=== PATIENT | female | born 1980 | race Two or more races ===

== ENCOUNTER → 2017-07-24 12:59 | Outpatient (CLI) | payer OTHER, SELFPAY ==
--- NOTE | 2017-07-24 13:02 | US_ITS ---
US OB transvaginal HISTORY: ITS.REASON: DATES ORDERING PHYSICIAN: Jessica Cesar MD PATIENT AGE: 37 years COMPARISON: FINDINGS: An intrauterine gestational sac is present with a pole with a crown-rump length of 2.66cm correlating to gestational age of 9w4d. heart tones are present with an FHR of 174 bpm's. Yolk sac is noted. Adnexa: 1.7 cm right corpus luteum cyst. IMPRESSION: Live IUP at 9 weeks 4 days with an estimated due date of 02/22/2018
== END ==
PROVIDERS: Visit Provider Obstetrics & Gynecology
DX: O26.841 Uterine size-date discrepancy, first trimester (principal)
CPT/HCPCS: 76830

== ENCOUNTER → 2017-08-07 14:49 | Outpatient (CLI) | payer OTHER, SELFPAY ==
[2017-08-07 15:22] LABS: Basophils % 0.4 % (0.1-2.0); Eosinophils # 0.4 K/mm3 (0.0-0.4); Eosinophils % 5.6 % (0.1-12.0); Hematocrit 38.4 % (37.0-47.0); Hemoglobin 13.6 g/dL (12.2-16.2); Lymphocytes # 2.6 K/mm3 (0.7-4.5); Lymphocytes % 36.8 K/mm3 (10-50); Mean Corpuscular HGB Conc 35.4 g/dL (31.8-35.4); Mean Corpuscular Hemoglobin 31.6 pg (27.0-31.2); Mean Corpuscular Volume 89.1 fl (81-99); Mean Platelet Volume 7.9 fl (7.4-10.4); Monocytes # 0.3 K/mm3 (0.1-1.0); Monocytes % 3.7 % (1.7-9.3); Neutrophils # 3.8 K/mm3 (1.8-7.8); Neutrophils % 53.5 % (37.0-80.0); Platelet Count 217 K/mm3 (142-424); Red Cell Distribution Width 12.8 % (11.5-17.5); White Blood Count 7.1 K/mm3 (4.8-10.8)
[2017-08-09 08:20] LABS: HIV Screen 4th Generation wRfx Non Reactive (Non Reactive)
[2017-08-10 06:26] LABS: Hepatitis B Surface Antigen Negative (Negative); Hepatitis C Antibody <0.1 s/co ratio (0.0-0.9); Rapid Plasma Reagin Ab Titer Non Reactive (NonRea<1:1)
== END ==
PROVIDERS: Visit Provider Obstetrics & Gynecology
DX: Z34.90 Encounter for supervision of normal pregnancy, unspecified, unspecified trimester (principal)
CPT/HCPCS: 36415; 85025; 86592; 86703; 86762; 86850; 87340; 87380; G0432

== ENCOUNTER → 2017-10-07 14:59 | Outpatient (CLI) | payer OTHER, SELFPAY ==
--- NOTE | 2017-10-07 15:02 | US_ITS ---
US OB /maternal detail: INDICATION: ITS.REASON: 20 wk + US OB Complete Antatomy Scan ORDERING PHYSICIAN: Jessica Cesar MD PATIENT AGE: 37 years TECHNIQUE: ultrasound transabdominal scanning. COMPARISON: No previous relevant studies. FINDINGS: Single viable intrauterine gestation. Breech position. Placenta: Posterior placenta grade 1. There is average amount fluid. The cervix appears satisfactory. Closed and measuring 4 cm in length. Complete survey performed and was unremarkable on the submitted images as in PACS. No discrete anomalies identified on survey imaging by technologist. Active fetus. Three-vessel cord with satisfactory umbilical cord insertion. 4- chamber heart noted. Survey of brain & ventricles. Face and neck survey unremarkable. Diaphragm and chest views unremarkable. Abdomen: Both kidneys noted and unremarkable. Stomach noted and satisfactory. Spine: Survey of the spine satisfactory with no anomalies identified nor imaged. Both arms and legs noted. Amniotic Fluid: Adequate. Maternal adnexa: No significant findings. Measurements: Average ultrasound age 20w4d. Gestational Age 20w3d. Estimated due date by ultrasound age 1102/20/2018. Estimated weight 344 grams. This is 38th percentile based on established due date of 02/20/2018 BPD = 20w5d OFD = 21w3d HC = 20w3d AC = 20w3d FL = 20w2d Heart Rate = 158 Cerebellum = 20w4d Humerus = 21w2d HC/AC is 1.18 (1.09-1.26). CI is 76% (70-86%). FL/BPD is 67%. FL/AC is 22%. IMPRESSION: There is a single live fetus in breech presentation with an average ultrasound age of 20 weeks and 4 days. No obvious anomalies are apparent. heart and body motion noted. All parameters correlate. Please see above for detail
== END ==
PROVIDERS: Visit Provider Obstetrics & Gynecology
DX: Z36.0 Encounter for antenatal screening for chromosomal anomalies (principal)
CPT/HCPCS: 76811

== ENCOUNTER 2018-01-12 16:22 | Observation (INO) ==
[2018-01-12 16:44] LABS: Microscopic, Urine URINE MICROSCOPIC (MICROSCOPIC)
[2018-01-12 16:46] LABS: Appearance,Urine CLEAR (Clear); Bilirubin,Urine Negative (Negative); Blood, Urine Negative (Negative); Color,Urine YELLOW (Yellow); Glucose,Urine (UA) Negative (Negative); Ketones,Urine Negative (Negative); Leukocyte Esterase,Urine Negative (Negative); Protein,Urine Negative (Negative); Specific Gravity, Urine 1.025 (1.005-1.030); Urobilinogen,Urine 0.2 EU/dl (0.2)
[2018-01-12 16:49] VITALS: BP 120/73
[2018-01-12 17:10] LABS: Bacteria,Urine 2+ /lpf
--- NOTE | 2018-01-12 19:37 | History & Physical Report ---
OB - H&P: HPI Antepartum - History of Present Illness Chief complaint: labor, contractions History of present illness: She is a 37-year-old 7 para 6 who has had 4 vaginal deliveries and 2 previous sections. She is scheduled for a repeat section on February 16, 2018. She began having contractions this afternoon and severe lower abdominal pain. She came in to labor and delivery. We were picking up a couple of small contractions. Her cervix is 2 cm 25%, -3 and soft. She has received Brethine as well as IV fluids. Despite this she continues to have lower abdominal pain so we are going to admit her overnight. - History of Present Criteria for establishing EDC:: LMP confirmed by 1st trimester US care: good care Ultrasounds: normal 1st trimester US, normal mid trimester US Obstetrical complications: labor, previous [facility] History I have reviewed the patient's past medical history: Yes Medical History: Reports:: Diabetes Mellitus Type 1 Denies:: Anxiety, Depression, Hyperlipidemia, Hypertension, Migraine, MRSA Other Surgeries: Yes: Amputation: No Fractures: No - *Social History Smoking Status: Never smoker Alcohol Intake: never Substance Use Type: denies use - Psychiatric History Pschychiatric History:: Denies:: Anxiety, Depression *Family Hx:: No significant family history Para: 6 Review of Systems - Review of Systems Review of systems:: pertinent systems reviewed and negative unless documented below Meds Home Medications Medication Instructions Recorded Confirmed Type RX: Hulkowql82/Iron/Folic Acid/Dha 1 cap PO QHS 08/05/17 08/05/17 History [Ob Complete Petite Softgel] Allergies Allergy/AdvReac Type Severity Reaction Status Date / Time No Known Allergies Allergy Verified 12/25/17 10:05 OB - H&P: Exam - Physical Exam Vital signs: Temp Pulse Resp BP Pulse Ox 97.9 F 79 18 120/73 96 01/12/18 16:36 01/12/18 16:36 01/12/18 16:36 01/12/18 16:36 01/12/18 16:36 - Constitutional no acute distress - Routine HEENT Exam Head: Present: normocephalic Eye: Present: EOMI, PERRL ENT: Present: mucous membranes moist - Routine Neck Exam Present: supple, full ROM - Routine Respiratory Exam Absent: accessory muscle use (good air entry bilaterally), respiratory distress, wheezes, crackles - Routine Cardiovascular Exam Present: RRR. Absent: murmur - Routine Abdominal Exam Present: soft, normoactive bowel sounds. Absent: tenderness, distended, guarding - Routine Rectal Exam Patient deferred: visual exam, digital exam - Routine Exam Patient deferred: external exam, groin exam, perineal exam - Routine Extremities Exam Present: full ROM. Absent: cyanosis, edema - Routine Skin Exam Present: intact. Absent: cyanosis - Routine Neurological Exam Present: alert, oriented X3 - Routine Psychiatric Exam Present: normal affect OB - Results - Labs Labs: Urine 01/12/18 Range/Units 16:40 Urine Color Yellow (Yellow) Urine Appearance Clear (Clear) Urine pH 7.0 (5.0-8.5) Ur Specific [place] 1.025 (1.005-1.030) Urine Protein Negative (Negative) Urine Glucose (UA) Negative (Negative) OB - A/P Antepartum (1) labor in third trimester Current visit: Yes Status: Acute (2) Pelvic pain affecting Current visit: No Status: Acute (3) History of delivery Problem details: 35 weeks Current visit: No Status: Chronic (4) Language barrier affecting health care Current visit: No Status: Chronic (5) Previous section Current visit: No Status: Chronic - Additional Plan Planning to breastfeed?: Yes Plan: other Additional Information:: We will admit her for observation and magnesium sulfate. We will go ahead and give her a course of steroids. We will continue to monitor her cervix.
[2018-01-12 20:21] LABS: Basophils # 0.1 K/mm3 (0-0.2); Basophils % 0.7 % (0.1-2.0); Eosinophils # 0.3 K/mm3 (0.0-0.4); Eosinophils % 4.4 % (0.1-12.0); Hematocrit 37.2 % (37.0-47.0); Hemoglobin 12.5 g/dL (12.2-16.2); Lymphocytes # 2.2 K/mm3 (0.7-4.5); Lymphocytes % 36.5 K/mm3 (10-50); Mean Corpuscular HGB Conc 33.5 g/dL (31.8-35.4); Mean Corpuscular Hemoglobin 30.3 pg (27.0-31.2); Mean Corpuscular Volume 90.4 fl (81-99); Mean Platelet Volume 8.5 fl (7.4-10.4); Monocytes # 0.2 K/mm3 (0.1-1.0); Monocytes % 3.4 % (1.7-9.3); Neutrophils # 3.3 K/mm3 (1.8-7.8); Platelet Count 184 K/mm3 (142-424); Red Blood Count 4.12 M/mm3 (4.20-5.40); Red Cell Distribution Width 13.7 % (11.5-17.5); White Blood Count 6.1 K/mm3 (4.8-10.8)
[2018-01-12 20:31] LABS: Albumin Level 2.5 gm/dL (3.4-5.0); Albumin/Globulin Ratio 0.6 (1.1-1.8); Anion Gap 14.2 mEq/L (5-15); Bilirubin,Total 0.3 mg/dL (0.2-1.0); Calcium 8.8 mg/dL (8.5-10.1); Globulin 4.5 gm/dl (1.3-3.2); Potassium 3.2 mmoL/L (3.5-5.1)
--- NOTE | 2018-01-12 22:21 | Progress Note ---
Internal Medicine - PN: Subj *Date: 01/12/18 *Time: 22:20 Interval history: She continues to have occasional contractions. She has received a 4 g bolus of magnesium sulfate and is now on 2 g an hour. She has been on this for about an hour. She had one contraction that I could see and possibly a couple of smaller ones. She still continues to complain of upper uterine discomfort as well as lower uterine discomfort with contractions. On examination her cervix has not changed its 2 cm 25% and station -3. Exam Vital signs and Labs for Last 24 Hours: Temp Pulse Resp BP Pulse Ox 97.9 F 79 18 120/73 96 01/12/18 16:36 01/12/18 16:36 01/12/18 16:36 01/12/18 16:36 01/12/18 16:36 Laboratory Results - last 24 hr 01/12/18 16:40: Urine Color Yellow, Urine Appearance Clear, Urine pH 7.0, Ur Specific [place] 1.025, Urine Protein Negative, Urine Glucose (UA) Negative, Urine Ketones Negative, Urine Blood Negative, Urine Nitrate Negative, Urine Bilirubin Negative, Urine Urobilinogen 0.2, Ur Leukocyte Esterase Negative, Urine RBC None, Urine WBC 3-5, Ur Squamous Epith Cells 3-5, Urine Bacteria 2+ 01/12/18 20:00: WBC 6.1, RBC 4.12 L, Hgb 12.5, Hct 37.2, MCV 90.4, MCH 30.3, MCHC 33.5, RDW 13.7, Plt Count 184, MPV 8.5, Neut % (Auto) 55.0, Lymph % (Auto) 36.5, [place] % (Auto) 3.4, Eos % (Auto) 4.4, Baso % (Auto) 0.7, Neut # (Auto) 3.3, Lymph # (Auto) 2.2, [place] # (Auto) 0.2, Eos # (Auto) 0.3, Baso # (Auto) 0.1 01/12/18 20:00: Sodium 140, Potassium 3.2 L, Chloride 107, Carbon Dioxide 22, Anion Gap 14.2, BUN 10, Creatinine 0.65, Estimated Creat Clear 171, Estimated GFR 104, Est GFR ( Amer) 126, Glucose 123 H, Calcium 8.8, Total Bilirubin 0.3, AST 37, ALT 24, Alkaline Phosphatase 119 H, Total Protein 7.0, Albumin 2.5 L, Globulin 4.5 H, Albumin/Globulin Ratio 0.6 L 01/12/18 20:00: Blood Type O Positive, Antibody Screen Negative 01/12/18 20:00: Magnesium 1.7 I & O for Last 24 hours: Intake & Output 01/10/18 01/11/18 01/12/18 01/13/18 11:59 11:59 11:59 11:59 Weight 198 lb - Constitutional no acute distress Assessment and Plan (1) labor in third trimester Current visit: Yes Status: Acute Category: Medical Code(s): O60.03 - labor without delivery, third trimester (2) Pelvic pain affecting Current visit: No Status: Acute Qualifiers: Trimester: first trimester Qualified Code(s): O26.891 - Other specified related conditions, first trimester; R10.2 - Pelvic and perineal pain Category: Medical Code(s): O26.899 - Other specified related conditions, unspecified trimester; R10.2 - Pelvic and perineal pain (3) History of delivery Problem details: 35 weeks Current visit: No Status: Chronic Category: Medical (4) Language barrier affecting health care Current visit: No Status: Chronic Category: Social Hx (5) Previous section Current visit: No Status: Chronic Category: Surgical Code(s): Z98.891 - History of uterine scar from previous surgery - Assessment and plan all Dx Assessment and Plan for all problems:: She continues to complain of contractions and pain despite the fact that were not seeing much on the monitor. She has not changed her cervix. We will continue with the magnesium sulfate. We will give her something a little stronger for pain to see if this helps her sleep. She said that the Stadol actually made her pain worse. We will try 2 mg of Stadol. We will continue with observation overnight. She has received 1 dose of steroids.
--- NOTE | 2018-01-13 08:35 | Discharge Summary ---
General - General Admission date:: 01/12/18 Discharge date: 01/13/18 HPI HPI: She is a-year-old 7 para 6 who is 34 weeks gestational age. She has had 2 previous sections. She arrived last night having irregular contractions and significant pain. She denies any vaginal bleeding. She says they feel like contractions. Initially we could not pick anything up on the monitor but after readjustment it was noted that she was having contractions every 2-5 minutes. As result of that she was admitted for observation. Her cervix was 2 cm 25% and station -3. Hospital Course Hospital Course: She was admitted and given a fluid bolus. This failed to help with her contractions. She received subcutaneous Brethine and despite this continued to contract. We elected to give her 20 mg of nifedipine and she still continued sheri. Subsequently we started her on IV magnesium sulfate and she was increased from 2 g to 3 g and still continued all night to have contractions. She seems to be quite uncomfortable. On examination this morning her cervix remains 2 cm 25% and station -3. She had an ultrasound that showed a fetus in the cephalic presentation and no evidence of thinning of the lower segment. She has not had any episodes of vaginal bleeding. She has received 1 dose of Brethine. I spoke to Dr. Hameed at [facility] and we will have Mine and her family drive to . Since she has not changed her cervix I think it safe for her to go in her own vehicle. We will disconnect her IVs as well as her Claudio catheter. I spoke to her family and I told him to let her remain n.p.o. for now since she may end up with a later today. Rhogam Administration: Not Indicated Objective Vital signs: Temp Pulse Resp BP Pulse Ox 97.9 F 79 18 120/73 96 01/12/18 16:36 01/12/18 16:36 01/12/18 16:36 01/12/18 16:36 01/12/18 16:36 mild distress - *Routine Exam Comments: Her cervix remains 2 cm 25% and station -3. Results Labs on day of discharge: Labs from last 24 hours 01/13/18 01/12/18 01/12/18 05:26 20:00 20:00 WBC RBC Hgb Hct MCV MCH MCHC RDW Plt Count MPV Neut % (Auto) Lymph % (Auto) [place] % (Auto) Eos % (Auto) Baso % (Auto) Neut # (Auto) Lymph # (Auto) [place] # (Auto) Eos # (Auto) Baso # (Auto) Sodium Potassium Chloride Carbon Dioxide Anion Gap BUN Creatinine Estimated Creat Clear Estimated GFR Est GFR ( Amer) Glucose Calcium Magnesium 6.8 H D 1.7 Total Bilirubin AST ALT Alkaline Phosphatase Total Protein Albumin Globulin Albumin/Globulin Ratio Urine Color Urine Appearance Urine pH Ur Specific [place] Urine Protein Urine Glucose (UA) Urine Ketones Urine Blood Urine Nitrate Urine Bilirubin Urine Urobilinogen Ur Leukocyte Esterase Urine RBC Urine WBC Ur Squamous Epith Cells Urine Bacteria Blood Type O Positive Antibody Screen Negative 01/12/18 01/12/18 01/12/18 20:00 20:00 16:40 WBC 6.1 RBC 4.12 L Hgb 12.5 Hct 37.2 MCV 90.4 MCH 30.3 MCHC 33.5 RDW 13.7 Plt Count 184 MPV 8.5 Neut % (Auto) 55.0 Lymph % (Auto) 36.5 [place] % (Auto) 3.4 Eos % (Auto) 4.4 Baso % (Auto) 0.7 Neut # (Auto) 3.3 Lymph # (Auto) 2.2 [place] # (Auto) 0.2 Eos # (Auto) 0.3 Baso # (Auto) 0.1 Sodium 140 Potassium 3.2 L Chloride 107 Carbon Dioxide 22 Anion Gap 14.2 BUN 10 Creatinine 0.65 Estimated Creat Clear 171 Estimated GFR 104 Est GFR ( Amer) 126 Glucose 123 H Calcium 8.8 Magnesium Total Bilirubin 0.3 AST 37 ALT 24 Alkaline Phosphatase 119 H Total Protein 7.0 Albumin 2.5 L Globulin 4.5 H Albumin/Globulin Ratio 0.6 L Urine Color Yellow Urine Appearance Clear Urine pH 7.0 Ur Specific [place] 1.025 Urine Protein Negative Urine Glucose (UA) Negative Urine Ketones Negative Urine Blood Negative Urine Nitrate Negative Urine Bilirubin Negative Urine Urobilinogen 0.2 Ur Leukocyte Esterase Negative Urine RBC None Urine WBC 3-5 Ur Squamous Epith Cells 3-5 Urine Bacteria 2+ Blood Type Antibody Screen DS: Diagnosis - Discharge Diagnosis (1) labor in third trimester Status: Acute (2) Pelvic pain affecting Status: Acute (3) History of delivery Status: Chronic Problem details: 35 weeks (4) Language barrier affecting health care Status: Chronic (5) Previous section Status: Chronic Discharge Plan - Patient Discharge Instructions ACTIVITY: No heavy lifting, Bed rest DIET: NPO, other Patient Instructions: Labor, Antepartum Care - Follow up Plan Disposition: Home, Self-Snf Medications: Home Medications Medication Instructions Recorded Confirmed Type RX: Oxakbqlk85/Iron/Folic Acid/Dha 1 cap PO QHS 08/05/17 01/13/18 History [Ob Complete Petite Softgel] Prescriptions/Medication Reconciliation: Continue RX: Avupurvy77/Iron/Folic Acid/Dha [Ob Complete Petite Softgel] 1 cap PO QHS
== END 2018-01-13 09:15 | disposition short-term general hospital (02) ==
LOC: OB 16:22 → OBOUT 16:22 → OB 16:24
PROVIDERS: ADMIT Nurse Practitioner Obstetrics & Gynecology; ATTEND Obstetrics & Gynecology
CPT/HCPCS: 36415; 59025; 76819; 80053; 81001; 83735; 85025; 86850; 87086; 94761; 96360; 96372; G0378; J0595

== ENCOUNTER → 2018-01-21 18:11 | Outpatient (REF) | payer OTHER, SELFPAY | LOC: LAB 18:11 | PROVIDERS: Visit Provider Obstetrics & Gynecology | DX: Z34.90 Encounter for supervision of normal pregnancy, unspecified, unspecified trimester (principal) | CPT/HCPCS: 86403 ==

== ENCOUNTER 2018-02-06 10:47 | Outpatient (CLI) | payer OTHER, SELFPAY ==
[2018-02-06 10:54] VITALS: BMI 37.2
[2018-02-06 11:03] VITALS: BP 125/73; PULSE 71; RESP 18; TEMP 37; O2SAT 99; BMI 37.2
[2018-02-06 11:04] LABS: Microscopic, Urine URINE MICROSCOPIC (MICROSCOPIC)
[2018-02-06 11:09] LABS: Appearance,Urine CLEAR (Clear); Bilirubin,Urine Negative (Negative); Blood, Urine Negative (Negative); Color,Urine YELLOW (Yellow); Glucose,Urine (UA) Negative (Negative); Ketones,Urine Negative (Negative); Leukocyte Esterase,Urine Negative (Negative); Nitrate,Urine Negative (Negative); Protein,Urine Negative (Negative); Specific Gravity, Urine 1.015 (1.005-1.030); Urobilinogen,Urine 0.2 EU/dl (0.2)
[2018-02-06 11:50] LABS: Bacteria,Urine Trace /lpf; WBC,Urine Occasional #/hpf (0-3)
== END 2018-02-06 12:59 | disposition home or self-care (01) ==
LOC: OBOUT 10:49 → OB 10:49
PROVIDERS: Visit Provider Obstetrics & Gynecology
DX: O60.03 Preterm labor without delivery, third trimester (principal); Z3A.37 37 weeks gestation of pregnancy
CPT/HCPCS: 59025; 81001; 96360

== ENCOUNTER 2018-02-13 10:58 | Inpatient (IN) ==
[2018-02-13 12:26] LABS: Basophils % 0.7 % (0.1-2.0); Eosinophils # 0.5 K/mm3 (0.0-0.4); Eosinophils % 7.2 % (0.1-12.0); Hematocrit 38.6 % (37.0-47.0); Hemoglobin 12.9 g/dL (12.2-16.2); Lymphocytes # 2.1 K/mm3 (0.7-4.5); Mean Corpuscular HGB Conc 33.3 g/dL (31.8-35.4); Mean Corpuscular Hemoglobin 29.4 pg (27.0-31.2); Mean Platelet Volume 9.1 fl (7.4-10.4); Monocytes # 0.3 K/mm3 (0.1-1.0); Monocytes % 4.4 % (1.7-9.3); Neutrophils # 3.4 K/mm3 (1.8-7.8); Neutrophils % 53.7 % (37.0-80.0); Platelet Count 195 K/mm3 (142-424); Red Blood Count 4.38 M/mm3 (4.20-5.40); Red Cell Distribution Width 14.4 % (11.5-17.5); White Blood Count 6.3 K/mm3 (4.8-10.8)
[2018-02-13 12:38] LABS: Anion Gap 14.5 mEq/L (5-15); Potassium 4.5 mmoL/L (3.5-5.1)
--- NOTE | 2018-02-13 15:41 | Operative Note ---
Pre-Op/Post-Op Diagnoses Operation Date: 02/13/18 13:00 PRE-OP DIAGNOSIS: 1. IUP @ 38 5/7 2. Previous C Section x 2 3. Polyhydramnios 4. Obesity 5. Undesired fertility 6. Language barrier affecting health care POST-OP DIAGNOSIS: 1. IUP @ 38 5/7 2. Previous C Section x 2 3. Polyhydramnios 4. Obesity 5. Undesired fertility 6. Language barrier affecting health care 7. Dense pelvic/abdominal adhesions Procedure: Procedures Operation Date: 02/13/18 13:00 <No data on this case meets the specified criteria> 1. Repeat Low Transverse C Section 2. Bilateral tubal ligation 3. Lysis of dense pelvic/abdominal adhesions Estimated blood loss (mL): 900 Disposition: PACU Anesthesia type: Spinal Complications: none Narrative: The patient was taken to the OR and spinal administered without difficulty. She was prepped and draped in normal sterile fashion. A pfannenstiel skin incision was made with the scalpel and carried down to the fascia. The fascia was incised in the midline and sharply dissected off the rectus muscles. The muscles were densely adhesed together and not easily in the midline. The muscles were sharply dissected until the peritoneum was visible immediately beneath them (10 minutes), but the peritoneum was also densely adhesed to the rectus muscles. Sharp and blunt dissection were carried out over approximately 20 minutes until the peritoneum was able to be entered successfully and without any damage to underlying structures. The Elmer-O self retaining retractor was placed in the abdomen and the anatomy surveyed. The bladder was adhesed approximately 1/3 up the anterior uterine surface, and another 20 minutes was spent in sharp dissection of the bladder in order to identify the lower uterine segment for the necessary incision. The uterus was incised in the lower uterine segment in a transverse fashion and extended bluntly. Amniotomy was performed and copious meconium-stained amniotic fluid was noted. The 's head was delivered in controlled fashion, and double nuchal cord was reduced prior to delivery of the infant's body. The delivery occurred without complication or shoulder dystocia. The was vigorous at and handed to awaiting pediatricians for evaluation after cord clamped and cut; apgars 8 & 9 at 1 & 5 minutes. The placenta was manually extracted and noted to be intact. The uterus was repaired with 0-vicryl in a running/locked fashion, and a second layer was placed for hemostasis. Oozing over the area of bladder adhesion dissection was treated with Adrienne and Surgicel, with excellent hemostasis. The extent of adhesions within the abdomen and pelvis were such that the uterus could not be successfully exteriorized through the pfannenstiel incision in order to remove the fallopian tubes in entirety, so a traditional tubal ligation was performed by making a defect in the mesosalpinx and clamping each fallopian tube with a Alla, excising the stump of tube between the clamps and suture ligating the respective ends. Tubal segments were sent for pathology and stumps cauterized for additional hemostasis. The fascia was closed with #1 vicryl in a running fashion. The subcutaneous fat was closed with 2-0 vicryl in interrupted fashion. The skin was closed with nel. The patient tolerated the procedure well. Sponge, lap, needle and instrument counts were correct x 2. She was taken to PACU in stable condition. EBL: 900cc Total time spent in lysis of adhesions: 50 minutes
--- NOTE | 2018-02-13 15:44 | Progress Note ---
[facility] Anesthesia Checklist - Patient Identification Patient Identification: Arm Band, Verbal (Name & ) - Structural Data Admitted From: Inpatient Planned Operative Procedure/s: repeat , BTL Consent for Planned Operative Procedure(s) Verified: Yes Verified Documents: Surgical Consent, History and Physical - NPO Status Verified Time NPO: 00:00 - Chart Verification Results Verified: CBC, BMP - Additional verifications Patient : Yes Anesthesia Reactions: No - Airway Assessment C-Spine Mobility Assessed: Yes TMJ Mobility Assessed: Yes Dentition: Good Dentition (Caps) - Neurological Assessment Hx Seizures: No Numbness or tingling in extremities: No - Anesthesia Plan Anesthesia Risk discussed: Yes Anesthesia Plan: Verified ASA Class: II Anesthesia Type: Spinal [facility] History I have reviewed the patient's past medical history: Yes Medical History: Reports:: Diabetes Mellitus Type 1 Denies:: Anxiety, Depression, Hyperlipidemia, Hypertension, Migraine, MRSA Other Surgeries: Yes: Amputation: No Fractures: No - *Social History Smoking Status: Never smoker Alcohol Intake: never Substance Use Type: denies use - Psychiatric History Pschychiatric History:: Denies:: Anxiety, Depression *Family Hx:: No significant family history Para: 6
--- NOTE | 2018-02-13 15:47 | Progress Note ---
[facility] Anesthesia Record Part II Discharge Time: 16:10 Destination: Obstetric PACU nurse assessment reviewed?: Yes Patient Condition:: Good Anesthesia Complications:: None
--- NOTE | 2018-02-13 15:47 | Progress Note ---
[facility] Anesthesia Record Part I Intake, IV Amount: 1,700 Estimated blood loss (mL): 900 Urine output (mL): 500 Blood Products used (#): none Blood Pressure: 143/77 SaO2: 97 Pulse Rate: 97 Respiratory Rate: 12 Temperature: 97.3 F Patient is:: Awake, Stable Stable to PACU at:: 15:40
--- NOTE | 2018-02-13 16:28 | Pharmacy Consult Notes ---
[facility] Pharmacy VTE Monitoring - Patient Demographics Admission date: 02/13/18 Report Date: 02/13/18 Time: 16:28 Allergies/Adverse Reactions: Patient Allergies No Known Allergies Allergy (Verified 02/11/18 13:57) Height: 1.55 m Weight: 94.347 kg Patient Problems: Current Active Problems Pelvic peritoneal adhesion complicating (Acute) Encounter for female sterilization procedure (Acute) - VTE Risk Labs: VTE Related Lab Results Hgb 12.9 g/dL (12.2-16.2) 02/13/18 11:34 Hct 38.6 % (37.0-47.0) 02/13/18 11:34 Plt Count 195 K/mm3 (142-424) 02/13/18 11:34 BUN 15 mg/dL (7-18) 02/13/18 11:34 Creatinine 0.60 mg/dL (0.55-1.02) 02/13/18 11:34 Estimated Creat Clear 193 mL/min (50-200) 02/13/18 11:34 Clinical Trial Participant: No - Prophylaxis VTE Prophylaxis Ordered?: Yes Types of VTE Prophylaxis: IPCS Knee High (POST OP)
[2018-02-13 17:31] LABS: Microscopic, Urine URINE MICROSCOPIC (MICROSCOPIC)
[2018-02-13 17:36] LABS: Appearance,Urine CLEAR (Clear); Bilirubin,Urine Negative (Negative); Blood, Urine Negative (Negative); Color,Urine YELLOW (Yellow); Glucose,Urine (UA) Negative (Negative); Ketones,Urine Negative (Negative); Leukocyte Esterase,Urine Negative (Negative); Protein,Urine Negative (Negative); Specific Gravity, Urine 1.015 (1.005-1.030); Urobilinogen,Urine 0.2 EU/dl (0.2)
[2018-02-13 18:45] LABS: Hematocrit 33.8 % (37.0-47.0)
[2018-02-13 18:49] LABS: Bacteria,Urine Trace /lpf
[2018-02-13 18:59] LABS: Hemoglobin 11.1 g/dL (12.2-16.2)
[2018-02-14 06:23] LABS: Hemoglobin 8.8 g/dL (12.2-16.2)
[2018-02-14 08:05] VITALS: BP 115/68
--- NOTE | 2018-02-14 08:36 | Progress Note ---
Internal Medicine - PN: Subj *Date: 02/14/18 *Time: 08:34 Interval history: This is /postop day #1. The patient is afebrile. Vital signs stable. Wound clean. Abdomen soft. Urine output is good. There was some hematuria last evening, which seems to be clearing. Her hemoglobin (12.9 g on admission; 11.1 g postop; 8.8 g now) will be watched, and repeated tonight. The baby is doing well. Impression: Stable. Exam Vital signs and Labs for Last 24 Hours: Temp Pulse Resp BP Pulse Ox 98.4 F 91 H 18 115/68 99 02/14/18 08:00 02/14/18 08:00 02/14/18 08:00 02/14/18 08:00 02/14/18 08:00 Laboratory Results - last 24 hr 02/13/18 11:15: Urine Color Yellow, Urine Appearance Clear, Urine pH 7.0, Ur Specific [place] 1.015, Urine Protein Negative, Urine Glucose (UA) Negative, Urine Ketones Negative, Urine Blood Negative, Urine Nitrate Negative, Urine Bilirubin Negative, Urine Urobilinogen 0.2, Ur Leukocyte Esterase Negative, Urine RBC None, Urine WBC 3-5, Ur Squamous Epith Cells 10-20, Urine Bacteria Trace 02/13/18 11:34: WBC 6.3, RBC 4.38, Hgb 12.9, Hct 38.6, MCV 88.0, MCH 29.4, MCHC 33.3, RDW 14.4, Plt Count 195, MPV 9.1, Neut % (Auto) 53.7, Lymph % (Auto) 34.0, [place] % (Auto) 4.4, Eos % (Auto) 7.2, Baso % (Auto) 0.7, Neut # (Auto) 3.4, Lymph # (Auto) 2.1, [place] # (Auto) 0.3, Eos # (Auto) 0.5 H, Baso # (Auto) 0.0 02/13/18 11:34: Sodium 137, Potassium 4.5, Chloride 103, Carbon Dioxide 24, Anion Gap 14.5, BUN 15, Creatinine 0.60, Estimated Creat Clear 193, Estimated GFR 113, Est GFR ( Amer) 137, Glucose 87, Calcium 9.0 02/13/18 11:34: Blood Type O Positive, Antibody Screen Negative 02/13/18 18:20: Hgb 11.1 L D, Hct 33.8 L 02/13/18 : Urine Color [place], Urine Appearance Turbid, Urine pH 6.5, Ur Specific [place] >= 1.030, Urine Protein 2+, Urine Glucose (UA) Negative, Urine Ketones Trace, Urine Blood 3+, Urine Nitrate Positive, Urine Bilirubin Negative, Urine Urobilinogen 0.2, Ur Leukocyte Esterase Negative, Urine RBC Tntc, Urine WBC Occasional, Ur Squamous Epith Cells 3-5, Urine Bacteria Trace 02/14/18 05:40: Hgb 8.8 L D, Hct 27.0 L I & O for Last 24 hours: Intake & Output 02/11/18 02/12/18 02/13/18 02/14/18 11:59 11:59 11:59 11:59 Intake Total 1700 / 1700 Output Total 500 / 500 Balance 1200 / 1200 Weight 208 lb 208 lb
[2018-02-14 18:10] LABS: Hematocrit 25.3 % (37.0-47.0); Hemoglobin 8.4 g/dL (12.2-16.2)
[2018-02-15 06:40] LABS: Hemoglobin 8.5 g/dL (12.2-16.2)
[2018-02-15 06:44] LABS: Hematocrit 24.3 % (37.0-47.0)
--- NOTE | 2018-02-15 07:52 | Progress Note ---
Internal Medicine - PN: Subj *Date: 02/15/18 *Time: 07:51 Interval history: This is /postop day #2. The patient is afebrile. Her vital signs are stable. Wound is clean. Her abdomen is soft, but significantly tender. Her urine output is good/clear. Her hemoglobin has stabilized at 8.5 g, at which she is clinically stable. The baby is doing well. Impression: Stable. Exam Vital signs and Labs for Last 24 Hours: Temp Pulse Resp BP Pulse Ox 98.4 F 91 H 18 115/68 99 02/14/18 08:00 02/14/18 08:00 02/14/18 08:00 02/14/18 08:00 02/14/18 08:00 Laboratory Results - last 24 hr 02/14/18 15:58: Hgb 8.4 L, Hct 25.3 L 02/15/18 06:07: Hgb 8.5 L, Hct 24.3 L I & O for Last 24 hours: Intake & Output 02/12/18 02/13/18 02/14/18 02/15/18 11:59 11:59 11:59 11:59 Intake Total 1700 / 1700 Output Total 500 / 500 Balance 1200 / 1200 Weight 208 lb 208 lb
--- NOTE | 2018-02-16 13:41 | Discharge Summary ---
General - General Admission date:: 02/13/18 Discharge date: 02/16/18 HPI HPI: Elective repeat CS performed 02/13/18 Postop course uncomplicated Postop anemia asymptomatic Discharged home on POD #3 Hospital Course Hospital Course: as per HPI Rhogam Administration: Not Indicated Objective Vital signs: Temp Pulse Resp BP Pulse Ox 98.4 F 91 H 16 115/68 99 02/14/18 08:00 02/14/18 08:00 02/15/18 20:35 02/14/18 08:00 02/14/18 08:00 Narrative: CONSTITUTIONAL: no acute distress HEENT: mucous membranes moist PULMONARY: breathing unlabored without audible wheezes CV: no tachycardia or visible JVD; normal LE peripheral pulses ABD: soft, NT/ND, no guarding : fundus firm at/below umbilicus SKIN: no visible rash or lesions EXT: 1+ edema LEs NEURO: alert/oriented, no altered mental status PSYCH: appropriate mood and demeanor without visible anxiety/depression DS: Diagnosis - Discharge Diagnosis (1) Previous section Status: Chronic (2) Anemia associated with acute blood loss Status: Acute (3) Pelvic peritoneal adhesion complicating Status: Acute (4) Encounter for female sterilization procedure Status: Acute (5) Polyhydramnios affecting Status: Acute Discharge Plan - Patient Discharge Instructions ACTIVITY: Limited activity DIET: regular diet Patient Instructions: Depression, Hemorrhage, Post Discharge Instructions - Follow up Plan Follow up with: Jessica Cesar MD [Primary Care Provider] - 02/25/18 1:30 pm Disposition: Home, Self-Snf Medications: Home Medications Medication Instructions Recorded Confirmed Type Mybzikoo72/Iron/Folic Acid/Dha [Ob 1 cap PO QHS 08/05/17 02/13/18 History Complete Petite Softgel] Prescriptions/Medication Reconciliation: New Oxycodone HCl [OxyIR 5mg tablet] 5 - 10 mg PO Q4HP PRN #40 tab PRN Reason: Moderate Pain Continue Vauvsoyv21/Iron/Folic Acid/Dha [Ob Complete Petite Softgel] 1 cap PO QHS
== END 2018-02-16 16:55 | disposition home or self-care (01) ==
LOC: OB 10:58
PROVIDERS: ADMIT Obstetrics & Gynecology; ATTEND Obstetrics & Gynecology